=== PATIENT | male | born 1940 | race Caucasian/White ===

== ENCOUNTER 2017-01-08 21:10 | Emergency (ER) | payer MEDICARE, BC ==
[2017-01-08 21:20] VITALS: BP 128/81
--- NOTE | 2017-01-08 23:34 | EDM.PDOC ---
ED HPI GENERAL MEDICAL PROBLEM - General Chief Complaint: General Stated Complaint: POSSIBLE STROKE VIA AMBULANCE Time Seen by Provider: 01/08/17 21:39 Source of Information: Reports: Patient History Limitations: Reports: No limitations - History of Present Illness INITIAL COMMENTS - FREE TEXT/NARRATIVE: History of present illness: [76-year-old male presenting after an episode that occurred while sitting on a bar stool in which he suddenly became unconscious his eyes are fluttering but he did not fall over or become limp. This happened for several minutes. His and other people were trying to talk him at the time but he didn't respond but after 5 minutes he came to and began talking and responding and now presents to the ER with complaints of a headache but really nothing else. He otherwise feels fine. His states that he's had a little cold lately but otherwise has been doing fairly well. He denies any visual disturbances he denies any focal neurological problems or deficits. Never had a stroke or TIA in the past. Denies any chest pain or shortness of breath nausea vomiting or dysuria.] Review of systems: As per history of present illness and below otherwise all systems reviewed and negative. Past medical history: As per history of present illness and as reviewed below otherwise noncontributory. Surgical history: As per history of present illness and as reviewed below otherwise noncontributory. Social history: No reported history of drug or alcohol abuse. Family history: As per history of present illness and as reviewed below otherwise noncontributory. Physical exam: HEENT: Atraumatic, normocephalic, pupils reactive, his left lid seemed to be drooping a little bit past his this was new when she thought that perhaps it was. negative for conjunctival pallor or scleral icterus, mucous membranes moist, throat clear, neck supple, nontender, trachea midline. Lungs: Clear to auscultation, breath sounds equal bilaterally, chest nontender. Heart: S1S2, regular, negative for clicks, rubs, or JVD. Abdomen: Soft, nondistended, nontender. Negative for masses or hepatosplenomegaly. Negative for costovertebral tenderness. Pelvis: Stable nontender. Genitourinary: Deferred. Rectal: Deferred. Extremities: Atraumatic, negative for cords or calf pain. Neurovascular unremarkable. Neuro: Awake, alert, oriented. Cranial nerves II through XII unremarkable. Cerebellum unremarkable. Motor and sensory unremarkable throughout. Exam nonfocal. Diagnostics: [CBC complete metabolic panel UA head CT EKG were all done chest x-ray also nothing definitive was found. He does have some minor lab abnormalities present. He may be a little dehydrated. He does not like to drink water in summary hasn't drank much water for a couple of days now. He was drinking some alcohol time that this occurred.] Therapeutics: [] Impression: [Syncopal episode] Plan: [We're suspecting that the primary cause of this is likely a state of dehydration and so he is encouraged to drink water and when he's not feeling well to avoid alcohol. I also recommend the followup with her primary doctor Dr. Mckeon as to have him aware of this episode. I think in retrospect that this was not a seizure but perhaps an EEG would be in order.] Definitive disposition and diagnosis as appropriate pending reevaluation and review of above. - Related Data Allergies Allergy/AdvReac Type Severity Reaction Status Date / Time No Known Allergies Allergy Verified 07/24/13 11:35 Home Meds: Home Meds Aspirin [Children's Aspirin] 81 mg PO DAILY 07/24/13 [History] Lisinopril 5 mg PO DAILY 07/24/13 [History] [place]-3 Fatty Acids [[place]-3] 1,000 mg PO DAILY 07/24/13 [History] Ubidecarenone [Coq10] 100 mg PO DAILY 07/24/13 [History] Carvedilol [Carvedilol] 25 mg PO BID 01/08/17 [History] Pravastatin [Pravachol] 20 mg PO DAILY 01/08/17 [History] Spironolactone [Aldactone] 12.5 mg PO DAILY 01/08/17 [History] Warfarin Sodium [Warfarin Sodium] 5 mg PO ASDIRECTED 01/08/17 [History] metFORMIN [Glucophage XR] 500 mg PO DAILY 01/08/17 [History] metFORMIN [Glucophage] 1,000 mg PO BEDTIME 01/08/17 [History] Past Medical History HEENT History: Reports: Impaired vision Cardiovascular History: Reports: Bypass, Heart Failure, Hypertension Musculoskeletal History: Reports: Fracture Endocrine/Metabolic History: Reports: Diabetes, type II Oncologic (Cancer) History: Reports: Basal cell carcinoma - Past Surgical History Cardiovascular Surgical History: Reports: Pacer Musculoskeletal Surgical History: Reports: Knee replacement Social & Family History - Tobacco Use Smoking Status *Q: Never Smoker - Caffeine Use Caffeine Use: Reports: Coffee - Alcohol Use Days Per Week of Alcohol Use: 7 Number of Drinks Per Day: 2 Total Drinks Per Week: 14 - Recreational Drug Use Recreational Drug Use: No ED ROS GENERAL - Review of Systems Review Of Systems: ROS reveals no pertinent complaints other than HPI. ED EXAM, GENERAL - Physical Exam Exam: See Below Course - Vital Signs Last Recorded V/S: Last Vital Signs Temp 36.4 C 01/08/17 21:18 Pulse 71 01/08/17 21:18 Resp 16 01/08/17 21:18 BP 128/81 01/08/17 21:18 Pulse Ox 98 01/08/17 21:18 - Orders/Labs/Meds Orders: Active Orders 24 hr Category Date Time Status EKG Documentation Completion [RC] ASDIRECTED Care 01/08/17 21:59 Active Chest 1V Frontal [CR] Stat Exams 01/08/17 21:58 Taken Head wo Cont [CT] Stat Exams 01/08/17 21:58 Taken DRUG SCREEN, URINE [URCHEM] Stat Lab 01/08/17 21:59 Uncollected UA W/MICROSCOPIC [URIN] Stat Lab 01/08/17 21:58 Uncollected EKG 12 Lead [EK] Stat Ther 01/08/17 21:58 Ordered Labs: Laboratory Tests 01/08/17 01/08/17 01/08/17 Range/Units 22:11 22:11 22:11 WBC 9.5 (4.5-11.0) K/uL RBC 4.34 (4.30-5.90) M/uL Hgb 14.1 (12.0-15.0) g/dL Hct 41.8 (40.0-54.0) % MCV 96 (80-98) fL MCH 33 H (27-31) pg MCHC 34 (32-36) % Plt Count 159 (150-400) K/uL Neut % (Auto) 69 H (36-66) % Lymph % (Auto) 18 L (24-44) % [place] % (Auto) 12 H (2-6) % Eos % (Auto) 1 L (2-4) % Baso % (Auto) 0 (0-1) % Sodium 135 L (140-148) mmol/L Potassium 4.5 (3.6-5.2) mmol/L Chloride 99 L (100-108) mmol/L Carbon Dioxide 26 (21-32) mmol/L Anion Gap 14.5 H (5.0-14.0) mmol/L BUN 23 H (7-18) mg/dL Creatinine 1.5 H (0.8-1.3) mg/dL Est Cr Clr Drug Dosing 45.99 mL/min Estimated GFR (MDRD) 46 L (>60) Glucose 161 H (74-106) mg/dL Calcium 8.6 (8.5-10.1) mg/dL Total Bilirubin 0.8 (0.2-1.0) mg/dL AST 18 (15-37) U/L ALT 18 (12-78) U/L Alkaline Phosphatase 68 (46-116) U/L Troponin I 0.033 (0.000-0.056) ng/mL C-Reactive Protein 4.29 H (0.0-0.3) mg/dL Total Protein 7.8 (6.4-8.2) g/dL Albumin 3.6 (3.4-5.0) g/dL Globulin 4.2 H (2.3-3.5) g/dL Albumin/Globulin Ratio 0.9 L (1.2-2.2) Ethyl Alcohol 6 mg/dL Departure - Departure Time of Disposition: 23:34 Disposition: Home, Self-Care 01 Condition: good Clinical Impression: Syncopal episodes Qualifiers: Syncope type: unspecified Qualified Code(s): R55 - Syncope and collapse Forms: ED Department Discharge Additional Instructions: As per our discussion please try to drink more water and avoid alcohol and not feeling well. I would also recommend following up with Dr. Dove just to let him know of this event and discussed the possibility of doing an EEG with him. - My Orders Last 24 Hours: My Active Orders 01/08/17 21:58 Chest 1V Frontal [CR] Stat Head wo Cont [CT] Stat UA W/MICROSCOPIC [URIN] Stat EKG 12 Lead [EK] Stat 01/08/17 21:59 EKG Documentation Completion [RC] ASDIRECTED DRUG SCREEN, URINE [URCHEM] Stat - Assessment/Plan Last 24 Hours: My Active Orders 01/08/17 21:58 Chest 1V Frontal [CR] Stat Head wo Cont [CT] Stat UA W/MICROSCOPIC [URIN] Stat EKG 12 Lead [EK] Stat 01/08/17 21:59 EKG Documentation Completion [RC] ASDIRECTED DRUG SCREEN, URINE [URCHEM] Stat
--- NOTE | 2017-01-10 09:00 | CR ---
Chest 1V Frontal HISTORY: syncope/seizure COMPARISON: 06/01/2009 FINDINGS: Lungs appear clear and normally aerated. There is generalized cardiomegaly. Old median sternotomy ch anges are noted. Atherosclerotic aorta is redemonstrated. There is been interval placement of a left -sided pacemaker/AICD. The generator obscures a portion of the left upper chest. Lead wires appear i ntact. No vascular redistribution or pleural fluid can be seen. Degenerative changes are noted along the thoracic spine with mild scoliosis convex to the left. IMPRESSION: Cardiomegaly without evidence for decompensation. Old median sternotomy changes. Left-sided pacemake r/AICD is noted. No other acute chest abnormality identified.
== END 2017-01-08 23:52 | disposition home or self-care (01) ==
LOC: JP.ED 21:10
DX: R55 Syncope and collapse (principal); I50.9 Heart failure, unspecified; I10 Essential (primary) hypertension; E11.9 Type 2 diabetes mellitus without complications; Z79.01 Long term (current) use of anticoagulants; Z79.82 Long term (current) use of aspirin; Z79.899 Other long term (current) drug therapy; Z95.0 Presence of cardiac pacemaker; Z95.1 Presence of aortocoronary bypass graft; Z96.659 Presence of unspecified artificial knee joint
CPT/HCPCS: 36415; 70450; 71010; 80053; 84484; 85025; 86140; 87804; 93005; 99284; G0480; 93010

== ENCOUNTER 2017-05-05 08:53 | Day surgery (SDC) | payer MEDICARE, BC ==
[~2017-05-05 08:53] MED LIST: Bacitracin Oint 1 GM U/D Packet ONE; Lidocaine 1% with EPINEPHrine 1:100,000 50 ML MDV ONE; Mineral Oil 10 ML Bottle ONE
[2017-05-05] MEDS ORDERED: Sodium Chloride 0.9% 1,000 ML IV SCH (09:30)
[2017-05-05] MEDS ORDERED: ceFAZolin 2 GM in Premix Bag 1 BAG IV ONE (10:00)
[2017-05-05] MEDS ORDERED: Propofol 200 MG/20 ML SDV ONE (10:26)
[2017-05-05] MEDS ORDERED: fentaNYL 100 MCG/2 ML SDV ONE (10:26)
[2017-05-05] MEDS ORDERED: Acetaminophen/oxyCODONE 325-10 MG Tab PO PRN (11:09)
[2017-05-05] MEDS ORDERED: Ondansetron 4 MG/2 ML SDV IVPUSH PRN (11:09)
[2017-05-05] MEDS ORDERED: Bisacodyl 5 MG Tab PO PRN (11:09)
[2017-05-05] MEDS ORDERED: Docusate Sodium 100 MG Cap PO PRN (11:09)
[2017-05-05] MEDS ORDERED: fentaNYL 100 MCG/2 ML SDV IVPUSH PRN (11:09)
[2017-05-05] MEDS ORDERED: Promethazine 25 MG/ML SDV IM PRN (11:09)
[2017-05-05] MEDS ORDERED: Ketorolac 60 MG/2 ML SDV ONE (11:14)
[2017-05-05 13:52] VITALS: BP 148/70
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
== END 2017-05-05 14:32 | disposition home or self-care (01) ==
LOC: JP.SDS 08:53 → JP.MS 11:09 → JP.SDS 14:32
PROVIDERS: ATTEND Surgery
DX: T24.321A Burn of third degree of right knee, initial encounter (principal); I25.10 Atherosclerotic heart disease of native coronary artery without angina pectoris; I10 Essential (primary) hypertension; E78.5 Hyperlipidemia, unspecified; E11.9 Type 2 diabetes mellitus without complications; J44.9 Chronic obstructive pulmonary disease, unspecified; Z79.82 Long term (current) use of aspirin; Z79.84 Long term (current) use of oral hypoglycemic drugs; Z79.01 Long term (current) use of anticoagulants; Z79.899 Other long term (current) drug therapy; X08.8XXA Exposure to other specified smoke, fire and flames, initial encounter; Z98.890 Other specified postprocedural states
CPT/HCPCS: 15002; 15100; C1762; J1885; J2704; J3010; J7040

== ENCOUNTER 2018-03-13 09:47 | Inpatient (IN) | payer MEDICARE, BC ==
[2018-03-13] MEDS ORDERED: Sodium Chloride 0.9% 10 ML Syringe FLUSH PRN (10:35)
[2018-03-13] MEDS ORDERED: Ondansetron 4 MG Tab.DIS PO PRN (10:36)
[2018-03-13] MEDS ORDERED: oxyCODONE 5 MG Tab PO PRN (10:36)
[2018-03-13] MEDS ORDERED: Acetaminophen 325 MG Tab PO PRN (10:36)
[2018-03-13] MEDS ORDERED: Ondansetron 4 MG/2 ML SDV IV PRN (10:36)
[2018-03-13] MEDS ORDERED: Morphine 2 MG/ML Syringe IVPUSH PRN (10:36)
--- NOTE | 2018-03-13 10:42 | PCM.HP ---
H&P History of Present Illness - General Date of Service: 03/13/18 Admit Problem/Dx: Admission Diagnosis/Problem Admission Diagnosis/Problem Generalized abdominal pain Source of Information: Patient, Family, Provider History Limitations: Reports: No Limitations - History of Present Illness Initial Comments - Free Text/Narative: Luciano initially presented to the walk-in clinic with abdominal pain. Workup in the walk-in clinic was concerning for small bowel obstruction and he was directly admitted to the hospital for further management. He reports onset of achy abdominal pain around 6 PM last night. This is a generalized pain centered in the middle of his abdomen. He did try some club soda because belching seemed like it helped some pain but this did not provide much relief. Any sort of pressure on his abdomen or being up and moving makes the pain worse. He describes the pain as fairly mild when he's at rest but can be severe with movement or pressure. He has some mild nausea but has not had any vomiting. He has been having one soft bowel movement daily for the past several days but did have some diarrhea several days ago which had been persistent for a few weeks after being on antibiotics. No fevers or chills. Appetite has been normal. No change in bladder habits. No complaints of shortness of breath beyond baseline. No one else is sick in the home. No sick contacts. Abdomen Pain Score (Numeric/FACES): 5 - Related Data Allergies/Adverse Reactions: Allergies Allergy/AdvReac Type Severity Reaction Status Date / Time No Known Allergies Allergy Verified 07/24/13 11:35 Home Medications: Home Meds Aspirin [Children's Aspirin] 81 mg PO DAILY 07/24/13 [History] Lisinopril 5 mg PO DAILY 07/24/13 [History] [place]-3 Fatty Acids [[place]-3] 1,000 mg PO DAILY 07/24/13 [History] Ubidecarenone [Coq10] 100 mg PO DAILY 07/24/13 [History] Carvedilol 25 mg PO BID 01/08/17 [History] Pravastatin [Pravachol] 20 mg PO BEDTIME 01/08/17 [History] Spironolactone [Aldactone] 12.5 mg PO DAILY 01/08/17 [History] Warfarin Sodium 5 mg PO ASDIRECTED 01/08/17 [History] metFORMIN [Glucophage XR] 500 mg PO DAILY 01/08/17 [History] metFORMIN [Glucophage] 1,000 mg PO BEDTIME 01/08/17 [History] Saw [place] Fruit [Saw [place]] 1 cap PO DAILY 05/05/17 [History] Past Medical History HEENT History: Reports: Impaired Vision Cardiovascular History: Reports: Bypass, CAD, Heart Failure, Hypertension, Other (See Below) Other Cardiovascular History: a-flutter Musculoskeletal History: Reports: Arthritis, Neck Pain, Chronic Endocrine/Metabolic History: Reports: Diabetes, Type II Oncologic (Cancer) History: Reports: Basal Cell Carcinoma - Infectious Disease History Infectious Disease History: Reports: Chicken Pox, Measles, Mumps, Shingles - Past Surgical History Cardiovascular Surgical History: Reports: Pacer GI Surgical History: Reports: Colonoscopy Musculoskeletal Surgical History: Reports: Arthroscopic Knee, Knee Replacement Oncologic Surgical History: Reports: Other (See Below) Other Oncologic Surgeries/Procedures: bx skin Dermatological Surgical History: Reports: Skin Biopsy Social & Family History - Family History Family Medical History: Noncontributory - Tobacco Use Smoking Status *Q: Never Smoker - Caffeine Use Caffeine Use: Reports: Coffee - Alcohol Use Alcohol Use History: Yes Days Per Week of Alcohol Use: 5 Days Per Week of Alcohol Use Comment: 2 H&P Review of Systems - Review of Systems: Review Of Systems: See Below Free Text/Narrative: A complete 12 point review of systems was obtained. Pertinent positives and negatives are noted in the history of present illness. All other systems were reviewed and were negative except as noted. Exam - Exam Exam: See Below - Vital Signs Vital Signs: Last Vital Signs Temp 35.6 C 03/13/18 10:03 Pulse 87 03/13/18 10:03 Resp 18 03/13/18 10:03 BP 167/102 H 03/13/18 10:03 Pulse Ox 98 03/13/18 10:03 - Exam Quality Assessment: No: Supplemental Oxygen General: Alert, Oriented, Cooperative. No: Mild Distress HEENT: Conjunctiva Clear, Mucosa Moist & [place]. No: Scleral Icterus Neck: Supple, Trachea Midline. No: Lymphadenopathy Lungs: Clear to Auscultation, Normal Respiratory Effort Cardiovascular: Regular Rate, Regular Rhythm GI/Abdominal Exam: Soft, Distended (mild), Tender (Moderate), Abnormal Bowel Sounds (Hypoactive) Back Exam: Normal Inspection, Full Range of Motion Extremities: No Pedal Edema. No: Increased Warmth Peripheral Pulses: 1+: Dorsalis Pedis (L), Dorsalis Pedis (R) Skin: Warm, Dry Neuro Extensive - Mental Status: Alert, Oriented x3, Nl Response to Commands Neuro Extensive - Motor, Sensory, Reflexes: CN II-XII Intact. No: Abnormal Reflexes, Dysarthria, Abnormal Motor, Tremor Psychiatric: Alert, Normal Affect - Patient Data Imaging Impressions Last 24 hrs: CT scan of the abdomen and pelvis -images personally reviewed - there is evidence for ileus with distended stomach as well as loops of small bowel. No obvious evidence for obstruction. No evidence for bowel wall thickening other than possibly a very small section of the small intestine in the mid abdomen. No colonic thickening. *Q Meaningful Use (ADM) - VTE Risk Assess *Q Each Risk Factor Represents 1 Point: Obesity ( BMI > 25 kg/m2), Congestive heart failure (CHF) Total Score 1 Point Risk Factors: 2 Each Risk Factor Represents 2 Points: None Total Score 2 Point Risk Factors: 0 Each Risk Factor Represents 3 Points: Age 75 Years or Greater Total Score 3 Point Risk Factors: 3 Each Risk Factor Represents 5 Points: None Total Score 5 Point Risk Factors: 0 Venous Thromboembolism Risk Factor Score *Q: 5 - Problem List (1) Generalized abdominal pain SNOMED Code(s): 960706220 ICD Code: R10.84 - GENERALIZED ABDOMINAL PAIN Status: Acute Current Visit : Yes (2) Ileus SNOMED Code(s): 829592396 ICD Code: K56.7 - ILEUS, UNSPECIFIED Status: Acute Current Visit: Yes (3) Systolic congestive heart failure SNOMED Code(s): 768482793 ICD Code: I50.20 - UNSPECIFIED SYSTOLIC (CONGESTIVE) HEART FAILURE Status: Chronic Current Visit: Yes Qualifiers: Heart failure chronicity: chronic Qualified Code(s): I50.22 - Chronic systolic (congestive) heart failure (4) Chronic atrial fibrillation SNOMED Code(s): 921922601 ICD Code: I48.2 - CHRONIC ATRIAL FIBRILLATION Status: Chronic Current Visit: Yes Problem List Initiated/Reviewed/Updated: Yes Orders Last 24hrs: Active Orders 24 hr Category Date Time Status Patient Status [ADT] Routine ADT 03/13/18 10:36 Ordered Intake and Output [RC] QSHIFT Care 03/13/18 10:37 Ordered Notify Provider Vital Signs [RC] ASDIRECTED Care 03/13/18 10:37 Ordered Oxygen Therapy [RC] PRN Care 03/13/18 10:36 Ordered Peripheral IV Care [RC] . DIRECTED Care 03/13/18 10:35 Ordered Up With Assistance [RC] ASDIRECTED Care 03/13/18 10:36 Ordered VTE/DVT Education [RC] Per Unit Routine Care 03/13/18 10:36 Ordered Vital Signs [RC] Q4H Care 03/13/18 10:36 Ordered Nothing per Oral Now Diet [DIET] Diet 03/13/18 Lunch Ordered Abdomen Pelvis w Cont [CT] Routine Exams 03/13/18 10:35 Ordered BASIC METABOLIC PANEL,BMP [CHEM] AM Lab 03/14/18 05:11 Ordered CBC W/O DIFF,HEMOGRAM [HEME] AM Lab 03/14/18 05:11 Ordered INR,PT,PROTHROMBIN TIME [COAG] AM Lab 03/14/18 05:11 Ordered INR,PT,PROTHROMBIN TIME [COAG] Urgent Lab 03/13/18 10:35 Ordered MAGNESIUM [CHEM] Urgent Lab 03/13/18 10:35 Ordered Acetaminophen [Tylenol] Med 03/13/18 10:36 Ordered 650 mg PO Q4H PRN Lactobacillus Rhamnosus GG [Culturelle] Med 03/13/18 21:00 Ordered 1 cap PO BID Morphine Med 03/13/18 10:36 Ordered 2 mg IVPUSH Q2H PRN Ondansetron [Zofran ODT] Med 03/13/18 10:36 Ordered 4 mg PO Q6H PRN Ondansetron [Zofran] Med 03/13/18 10:36 Ordered 4 mg IV Q6H PRN Sodium Chloride 0.9% @ 100 MLS/HR(1000ml) Med 03/13/18 10:45 Ordered Sodium Chloride 0.9% [Normal Saline] 1,000 ml IV ASDIRECTED Sodium Chloride 0.9% [Saline Flush] Med 03/13/18 10:35 Ordered 10 ml FLUSH ASDIRECTED PRN oxyCODONE Med 03/13/18 10:36 Ordered 5 mg PO Q4H PRN Peripheral IV Insertion Adult [OM.PC] Routine Oth 03/13/18 10:35 Ordered Sequential Compression Device [OM.PC] Per Unit Routine Oth 03/13/18 10:38 Ordered Resuscitation Status Routine Resus Stat 03/13/18 10:36 Ordered Medication Orders Sodium Chloride (Normal Saline) 1,000 mls @ 100 mls/hr IV ASDIRECTED JUNE Sodium Chloride (Saline Flush) 10 ml FLUSH ASDIRECTED PRN PRN Reason: Keep Vein Open Assessment/Plan Comment:: ASSESSMENT AND PLAN - Generalized abdominal pain, probable ileus - concern for small bowel obstruction in the clinic but CT scan more suggestive of ileus. Probable regional enteritis noted in the small intestine. No fevers or strong evidence to support bacterial infection at this time. No active diarrhea. Exam relatively benign. -IV fluids -Symptomatic management -Repeat x-ray in the morning -Clear liquids -Antibiotics to cover enteric organisms if fever -NG tube of vomiting Systolic congestive heart failure, chronic - no evidence for decompensation at this time. -Continue home medications Chronic atrial fibrillation - rate controlled at this time. He is systemically anticoagulated. -Continue home meds -Hold warfarin today -INR in the morning Maintenance issues - - DVT prophylaxis - warfarin - GI prophylaxis - not indicated - Nutrition - clear liquids - Saab catheter - not indicated CODE STATUS - full code Admission justification - This patient will be admitted for inpatient services and is medically appropriate meeting medical necessity for inpatient admission as outlined in my documentation. I reasonably expect the patient will require inpatient services that span a period time over 2 midnights. I reasonably expect this patient to be discharged or transferred within 96 hours [facility] Disposition - anticipate discharge home after the hospital stay Primary care physician - Geoffrey Dewitt M.D.
[2018-03-13] MEDS ORDERED: Sodium Chloride 0.9% 1,000 ML IV SCH (10:45)
[2018-03-13] MEDS ORDERED: Sodium Chloride 0.9% 10 ML Syringe FLUSH ONE (11:03)
[2018-03-13] MEDS ORDERED: Sodium Chloride 0.9% 100 ML IV SCH (11:15)
[2018-03-13] MEDS ORDERED: Iopamidol 612 MG/ML 150 ML Bottle IV SCH (11:15)
--- NOTE | 2018-03-13 14:37 | CT ---
Abdomen Pelvis w Cont CLINICAL HISTORY: Abdominal pain COMPARISON: None. TECHNIQUE: Axial tomographic images are obtained from the dome of the diaphragm to the pubic symphysi s without IV contrast enhancement. No oral contrast was used. Auto dosage reduction and iterative rec onstruction techniques employed. FINDINGS: The lung bases are clear. The liver is free of mass or biliary dilatation. The gallbladder has a normal contour. The spleen has a normal size and shape. There is a small amount of ascitic flui d around the liver and spleen. Patient has a periumbilical hernia which contains peritoneal fat. The pancreas is atrophic. The adrenal glands are normal bilaterally. The kidneys show no mass or hydronep hrosis. There is some scarring in the lower pole of the left kidney. The there are 2 cysts of the mid to upper pole measuring 4.4 x 4.7 cm. There is minimal scarring in the right kidney. Ureters have no rmal course and caliber.. The aorta shows moderate atheromatous change without aneurysm. There is no suspicious retroperitoneal adenopathy. There is moderate dilatation of the ileum and some distal jejunum. The duodenum and proximal jejunum are normal caliber. The there is a segment of the thickened and enhancing bowel which appears to be i n the proximal to mid ileum. There is some surrounding fluid and some stranding in the fat. The this is suggestive of an enteritis. The bladder shows mild generalized bladder wall thickening. There is a n enlarged prostate. The appendix is not definitively identified There is fluid-filled colon without distention. IMPRESSION: Moderate to the distention of the ileum. This is most likely ileus. The proximal small neida wel is nondilated Segmental thickening proximal to mid ileum with enhancement of the bowel wall suggests a regional ent eritis. There is some minimal stranding in the surrounding fat Small amount of abdominal ascites Small periumbilical hernia containing peritoneal fat The cysts in the left kidney Small areas of renal cortical scarring bilaterally
[2018-03-13] MEDS: Magnesium Sulfate/Water 2 GM in Premix Bag 1 BAG IV SCH (16:34)
[2018-03-13] MEDS: Carvedilol 25 MG Tab PO SCH (20:55)
[2018-03-13] MEDS: Lactobacillus Rhamnosus GG (Probiotic) Cap PO SCH (20:55)
[2018-03-13] MEDS ORDERED: Pravastatin 20 MG Tab PO SCH (21:00)
[2018-03-13] MEDS ORDERED: metFORMIN 500 MG Tab PO SCH (21:00)
[2018-03-14] MEDS: Magnesium Sulfate/Water 2 GM in Premix Bag 1 BAG IV SCH (01:28)
[2018-03-14] MEDS: Carvedilol 25 MG Tab PO SCH (08:27)
[2018-03-14] MEDS: Lactobacillus Rhamnosus GG (Probiotic) Cap PO SCH (08:28)
--- NOTE | 2018-03-14 08:54 | CR ---
Abdomen 2V AP Flat Upright CLINICAL HISTORY: Follow-up obstruction FINDINGS: There are scattered air-filled mildly dilated loops of small bowel with scattered air-fluid levels. There is gas and feces are the colon. There is contrast in the bladder from previous CT. No free air is identified. IMPRESSION: Persistent small bowel distention in a nonspecific pattern. Findings are similar to the e [facility] CT. Continued follow-up recommended
[2018-03-14] MEDS ORDERED: metFORMIN 500 MG Tab PO SCH (09:00)
[2018-03-14] MEDS ORDERED: COQ PO SCH (09:00)
[2018-03-14] MEDS ORDERED: SAW PALMETTO PO SCH (09:00)
[2018-03-14] MEDS ORDERED: metFORMIN 500 MG Tab.ER PO SCH (09:00)
[2018-03-14] MEDS ORDERED: Aspirin 81 MG Tab.Chew PO SCH (09:00)
[2018-03-14] MEDS ORDERED: Lisinopril 5 MG Tab PO SCH (09:00)
[2018-03-14] MEDS ORDERED: Spironolactone 25 MG Tab PO SCH (09:00)
[2018-03-14 11:39] VITALS: BP 136/81
--- NOTE | 2018-03-14 13:16 | PCM.DCSUM1 ---
Discharge Summary - Hospital Course Brief History: 70-year-old male with coronary artery disease, ischemic cardiomyopathy with reduced ejection fraction and diabetes who presented to the clinic with acute generalized abdominal pain and was directly admitted for management of possible small bowel obstruction. - Discharge Data Discharge Date: 03/14/18 Discharge Disposition: Home, Self-Care 01 Condition: Good - Discharge Diagnosis/Problem(s) (1) Generalized abdominal pain SNOMED Code(s): 081317547 ICD Code: R10.84 - GENERALIZED ABDOMINAL PAIN Status: Acute (2) Ileus SNOMED Code(s): 682219503 ICD Code: K56.7 - ILEUS, UNSPECIFIED Status: Acute (3) Systolic congestive heart failure SNOMED Code(s): 000271771 ICD Code: I50.20 - UNSPECIFIED SYSTOLIC (CONGESTIVE) HEART FAILURE Status: Chronic Qualifiers: Heart failure chronicity: chronic Qualified Code(s): I50.22 - Chronic systolic (congestive) heart failure (4) Chronic atrial fibrillation SNOMED Code(s): 294734113 ICD Code: I48.2 - CHRONIC ATRIAL FIBRILLATION Status: Chronic - Patient Summary/Data Hospital Course: Luciano presented to the walk-in clinic with acute onset of generalized abdominal pain. Workup in the walk-in clinic was concerning for small bowel obstruction and he was directly admitted to the hospital for further management. After admission to the hospital we did perform a CT scan which was more suggestive of ileus with a possible small area of enteritis. There is no definitive evidence for small bowel obstruction. Overnight following admission he did not have much in the way of pain. He did not have any nausea or vomiting. He did not have any fevers. By the morning after admission he is experiencing only very mild discomfort. White count remains normal. He did not have any vomiting. Repeat x- ray in the morning after admission showed improvement in the mildly dilated loops of bowel. He had bowel movements overnight following admission but has not had any the morning of discharge. We transitioned him to a regular diet which he tolerated well. He does not have any nausea or pain at this time. He has been up and walking around. This is unlikely to represent bacterial infection. Mild viral infection could be considered. No history of inflammatory bowel disease and this is unlikely. He is doing well and would like to go home at this time. We have not found any acute pathology but did not find a definitive explanation for his troubles. He tolerated a regular diet and looks well so I believe is safe for outpatient management. He was encouraged to follow a soft and bland diet for the next several days before transitioning to a regular diet. The patient was admitted to inpatient status with a suspicion that he had a small bowel obstruction at the time of admission. Further imaging after admission suggested he did not have a small bowel obstruction. His condition improved much quicker than expected and he was ready for discharge after only one right of hospitalization. - Patient Instructions Diet: Regular Diet as Tolerated Diet, Other: soft and bland foods for the next few days Activity: As Tolerated Driving: May Drive Today Showering/Bathing: May Shower Notify Provider of: Fever, Increased Pain, Nausea and/or Vomiting Other/Special Instructions: 1. You Were in the hospital for evaluation and management of generalized abdominal pain and a probable ileus (slowing of urinary intestinal function). The exact cause for your abdominal pain and ileus is not entirely clear but symptoms seem to be getting better without any specific intervention. I recommend a soft and bland diet for the next several days and if you are pain-free you can return to your normal diet. 2. Continue your usual home medications as previously prescribed. 3. Seek medical attention if you have increasing pain, persistent vomiting or severe diarrhea. - Discharge Plan Home Medications: Home Meds Aspirin 81 mg PO DAILY 07/24/13 [History] Lisinopril 5 mg PO DAILY 07/24/13 [History] Martin-3 Fatty Acids [Martin-3] 1,000 mg PO DAILY 07/24/13 [History] Ubidecarenone [Coq10] 100 mg PO DAILY 07/24/13 [History] Carvedilol 25 mg PO BID 01/08/17 [History] Pravastatin [Pravachol] 20 mg PO BEDTIME 01/08/17 [History] Spironolactone [Aldactone] 12.5 mg PO DAILY 01/08/17 [History] Warfarin Sodium 5 mg PO ASDIRECTED 01/08/17 [History] metFORMIN [Glucophage] 1,000 mg PO BEDTIME 01/08/17 [History] Saw [place] Fruit [Saw [place]] 1 cap PO DAILY 05/05/17 [History] metFORMIN [Glucophage] 500 mg PO DAILY 03/13/18 [History] Patient Handouts: Abdominal Pain, Adult, Ileus - Discharge Summary/Plan Comment DC Time >30 min.: No (25) - Patient Data Vitals - Most Recent: Last Vital Signs Temp 35.6 C 03/14/18 11:37 Pulse 70 03/14/18 11:37 Resp 18 03/14/18 11:37 BP 136/81 03/14/18 11:37 Pulse Ox 100 03/14/18 11:37 Weight - Most Recent: 92.986 kg I&O - Last 24 hours: Intake & Output 03/13/18 03/14/18 03/14/18 22:59 06:59 14:59 Intake Total 840 1272 1316 Balance 840 1272 1316 Lab Results - Last 24 hrs: Laboratory Results - last 24 hr 03/14/18 03/14/18 03/14/18 Range/Units 05:15 05:15 05:15 WBC 7.8 (4.5-11.0) K/uL RBC 4.05 L (4.30-5.90) M/uL Hgb 12.8 (12.0-15.0) g/dL Hct 39.4 L (40.0-54.0) % MCV 97 (80-98) fL MCH 32 H (27-31) pg MCHC 33 (32-36) % Plt Count 177 (150-400) K/uL PT 27.0 H (9.5-12.0) sec INR 2.43 H (0.80-1.20) Sodium 137 L (140-148) mmol/L Potassium 3.7 (3.6-5.2) mmol/L Chloride 105 (100-108) mmol/L Carbon Dioxide 25 (21-32) mmol/L Anion Gap 10.7 (5.0-14.0) mmol/L BUN 15 (7-18) mg/dL Creatinine 1.0 (0.8-1.3) mg/dL Est Cr Clr Drug Dosing 66.82 mL/min Estimated GFR (MDRD) > 60 (>60) Glucose 110 H (74-106) mg/dL Calcium 8.0 L (8.5-10.1) mg/dL Med Orders - Current: Current Medications Acetaminophen (Tylenol) 650 mg PO Q4H PRN PRN Reason: Pain (Mild 1-3)/fever Aspirin (Aspirin) 81 mg PO DAILY JUNE Last Admin: 03/14/18 08:27 Dose: 81 mg Carvedilol (Coreg) 25 mg PO BID [facility] Last Admin: 03/14/18 08:27 Dose: 25 mg Lactobacillus Rhamnosus (Culturelle) 1 cap PO BID [facility] Last Admin: 03/14/18 08:28 Dose: 1 cap Lisinopril (Prinivil) 5 mg PO DAILY [facility] Last Admin: 03/14/18 08:28 Dose: 5 mg Metformin HCl (Glucophage) 1,000 mg PO BEDTIME [facility] Last Admin: 03/13/18 20:55 Dose: 1,000 mg Metformin HCl (Glucophage) 500 mg PO DAILY [facility] Last Admin: 03/14/18 08:28 Dose: 500 mg Morphine Sulfate (Morphine) 2 mg IVPUSH Q2H PRN PRN Reason: Pain (severe 7-10) [place] 1 Cap ( (Ptom)) 0 cap PO DAILY [facility] Last Admin: 03/14/18 08:34 Dose: Not Given Coq-10 100 Mg (Ptom) 0 mg PO DAILY [facility] Last Admin: 03/14/18 08:34 Dose: Not Given Ondansetron HCl (Zofran Odt) 4 mg PO Q6H PRN PRN Reason: Nausea able to take PO Ondansetron HCl (Zofran) 4 mg IV Q6H PRN PRN Reason: Nausea/Vomiting Oxycodone HCl (Oxycodone) 5 mg PO Q4H PRN PRN Reason: Pain (moderate 4-6) Pravastatin Sodium (Pravachol) 20 mg PO BEDTIME [facility] Last Admin: 03/13/18 20:55 Dose: 20 mg Sodium Chloride (Saline Flush) 10 ml FLUSH ASDIRECTED PRN PRN Reason: Keep Vein Open Spironolactone (Aldactone) 12.5 mg PO DAILY [facility] Last Admin: 03/14/18 08:27 Dose: 12.5 mg Discontinued Medications Sodium Chloride (Normal Saline) 1,000 mls @ 100 mls/hr IV ASDIRECTED [facility] Last Admin: 03/13/18 11:34 Dose: 100 mls/hr Sodium Chloride (Normal Saline) 100 mls @ 3 mls/sec IV ASDIRECTED [facility] Stop: 03/13/18 14:00 Last Admin: 03/13/18 11:23 Dose: 3 mls/sec Magnesium Sulfate 2 gm/ Premix 50 mls @ 25 mls/hr IV Q6H [facility]UN[facility] Stop: 03/13/18 23:59 Last Admin: 03/14/18 01:28 Dose: 25 mls/hr Iopamidol (Isovue-300 (61%)) 140 ml IV . DIRECTED JUNE Stop: 03/13/18 14:00 Last Admin: 03/13/18 11:23 Dose: 140 ml Sodium Chloride (Saline Flush) 10 ml FLUSH ONETIME ONE Stop: 03/13/18 11:04 Last Admin: 03/13/18 11:23 Dose: 10 ml - Exam Quality Assessment: Denies: Supplemental Oxygen General: Reports: Alert, Oriented, Cooperative, No Acute Distress Neck: Reports: Supple Lungs: Reports: Normal Respiratory Effort GI/Abdominal Exam: Soft, Distended (mild), Tender (mild periumbilical ) Extremities: No Pedal Edema Psy/Mental Status: Reports: Alert, Normal Affect
== END 2018-03-14 13:35 | disposition home or self-care (01) | DRG 389 ==
LOC: JP.MS 09:47
PROVIDERS: ADMIT Internal Medicine; ATTEND Internal Medicine
DX: K56.7 Ileus, unspecified (principal); I50.22 Chronic systolic (congestive) heart failure; I25.10 Atherosclerotic heart disease of native coronary artery without angina pectoris; I48.2 Chronic atrial fibrillation; E11.9 Type 2 diabetes mellitus without complications; I11.0 Hypertensive heart disease with heart failure; Z85.828 Personal history of other malignant neoplasm of skin; Z95.1 Presence of aortocoronary bypass graft; H54.7 Unspecified visual loss; Z79.82 Long term (current) use of aspirin; Z79.01 Long term (current) use of anticoagulants; Z79.84 Long term (current) use of oral hypoglycemic drugs; Z96.659 Presence of unspecified artificial knee joint; I25.5 Ischemic cardiomyopathy
CPT/HCPCS: 36415; 74019; 74019-26; 74177; 74177-26; 80048; 83735; 85027; 85610; A9270-GY; J3475; J7030; J7050